=== PATIENT | female | born 1965 | race Two or more races ===

== ENCOUNTER 2016-11-30 16:01 | Emergency (ER) | payer MEDICAID ==
[2016-11-30] MEDS ORDERED: ONDANSETRON 4 MG/2ML 2 ML VIAL ONE (16:48)
[2016-11-30] MEDS ORDERED: KETOROLAC TROMETHAMINE 30 MG/ML 1 ML VIAL ONE (16:48)
[2016-11-30] MEDS ORDERED: MORPHINE SULFATE 4 MG/ML SYRINGE ONE (16:48)
[2016-11-30] MEDS ORDERED: SODIUM CHLORIDE 0.9% 1,000 ML ONE (16:48)
[2016-11-30 16:51] LABS: ABSOLUTE NEUTROPHIL COUNT 5.3 K/mm3 (1.8-7.7); BASO % 0.3 % (0.2-1.0); EOS % 0.4 % (0.9-2.9); HEMATOCRIT 42.5 % (37.0-47.0); HEMOGLOBIN 14.1 gm/l (12.0-16.0); IMM NEUT% 0.4 % (0-1); LYMPH # 1.7 (1.0-4.8); LYMPH % 22.4 % (15-45); MEAN CELL VOLUME 92.2 fl (81.0-99.0); MEAN CORPUSCULAR HEMOGLOBIN 30.6 pg (27.0-31.0); MEAN CORPUSCULAR HGB CONC 33.2 g/dl (33.0-37.0); MEAN PLATELET VOLUME 10.3 fl (7.4-10.4); MONO # 0.4 (0.0-0.8); NEUT % 71.5 % (43-75); PLATELET COUNT 243 K/mm3 (130-400); RED CELL DISTRIBUTION WIDTH 11.8 % (11.5-14.5)
[2016-11-30 17:15] LABS: ALB/GLOB RATIO 1.4 (>1.0); ALBUMIN 4.7 gm/dL (3.5-5.7); CALCIUM 9.9 mg/dL (8.6-10.3)
--- NOTE | 2016-11-30 17:37 | CT ---
HEAD CT WITHOUT CONTRAST HISTORY: Worsening headache. No intravenous contrast administered. Contiguous axial images acquired from skull base to vertex. COMPARISON:None. BRAIN VOLUME:Grossly unremarkable for patient age. VENTRICULAR SIZE:No gross ventriculomegaly. FOCAL MASS EFFECT:None. ACUTE INTRACRANIAL HEMORRHAGE:None. CALVARIUM:Grossly intact. VISIBLE PARANASAL SINUSES AND MASTOID AIR CELLS:Grossly clear. IMPRESSION: No gross mass effect, ventriculomegaly, or acute intracranial hemorrhage. Results were electronically transmitted to the electronic medical record at 11/30/2016 at 1734 hours.
[2016-11-30] MEDS ORDERED: LORAZEPAM 2 MG/ML 1ML SDV ONE (18:17)
== END 2016-11-30 18:38 | disposition home or self-care (01) ==
LOC: ED 16:01
DX: R51 Headache (principal); E78.5 Hyperlipidemia, unspecified; Z79.899 Other long term (current) drug therapy
CPT/HCPCS: 85025; 80053; 70450; 96375 ×3; 99284; 96374; 99283; J2060; J2270; J1885; J2405; J7030